=== PATIENT | male | born 1975 | race Caucasian/White ===

== ENCOUNTER 2021-12-26 10:28 | Emergency (ER) | payer BC ==
[~2021-12-26] VITALS: Ht 167.6 cm; Wt 70.3 kg
== END 2021-12-26 11:14 | disposition home or self-care (01) ==
LOC: ER 10:30
DX: M79.661 Pain in right lower leg (principal); S86.811A Strain of other muscle(s) and tendon(s) at lower leg level, right leg, initial encounter; X50.1XXA Overexertion from prolonged static or awkward postures, initial encounter
CPT/HCPCS: 99283